=== PATIENT | female | born 2000 | race Caucasian/White ===

== ENCOUNTER 2023-02-07 21:31 | Observation (INO) ==
[2023-02-07 22:15] LABS: INR 1.1 (0.88-1.18)
[2023-02-07 22:17] LABS: ABS Eosinophils 0.1 10^3/ul (0-0.6); ABS Lymphocytes 2.6 10^3/ul (1.0-4.8); ABS Monocytes 1.4 10^3/ul (0-0.8); ABS Neutrophils 10.7 10^3/ul (1.5-7.7); Eosinophil % 0.5 %; Hematocrit 38 % (35-47); Hemoglobin 12.1 g/dL (12.0-16.0); Lymphocyte % 17.4 %; Mean Corpuscular HGB Conc 32 g/dL (31-36); Mean Corpuscular Hemoglobin 30 pg (27-31); Mean Corpuscular Volume 94 fL (80-97); Mean Platelet Volume 8.8 fL (7.4-10.4); Nucleated Red Blood Cells % 0.1; Platelet Count 316 10^3/uL (150-450); Red Blood Count 4.06 10^6 /uL (3.70-4.87); Red Cell Distribution Width 14 % (10-15); White Blood Count 14.7 10^3/uL (3.5-10.8)
[2023-02-07 22:24] LABS: High Sens Troponin Baseline < 3 pg/mL (<15)
[2023-02-07 22:49] LABS: Albumin 3.3 g/dL (3.2-5.2); Anion Gap 13 mmol/L (2-11); CO2 Carbon Dioxide 17 mmol/L (22-32); Calcium 9.3 mg/dL (8.6-10.3); Chloride 103 mmol/L (101-111); Magnesium 1.6 mg/dL (1.9-2.7); Sodium 133 mmol/L (135-145)
[2023-02-07 22:55] LABS: ALT 22 U/L (7-52); AST 19 U/L (13-39); Albumin/Globulin Ratio 0.9 (1-3); Alkaline Phosphatase 94 U/L (35-149); Blood Urea Nitrogen 7 mg/dL (6-24); Globulin 3.6 g/dL (2-4); Glucose 105 mg/dL (70-100); Total Protein 6.9 g/dL (6.4-8.9); eGFR CKD-EPI 134.2 (>60)
[2023-02-07 23:10] LABS: High Sensitivity Troponin 1 Hr 16 pg/mL (<15)
[2023-02-08] MEDS ORDERED: Heparin DRIP 25,000 UNITS BAG 25,000 UNITS/500 ML BAG IV SCH (03:30)
[2023-02-08] MEDS ORDERED: Heparin 5000 UNITS/ML 1 mL VIAL IV SCH (04:00)
[2023-02-08 04:03] LABS: Hematocrit 34 % (35-47); Hemoglobin 11.1 g/dL (12.0-16.0); Mean Corpuscular HGB Conc 33 g/dL (31-36); Mean Corpuscular Hemoglobin 29 pg (27-31); Mean Corpuscular Volume 89 fL (80-97); Mean Platelet Volume 8.6 fL (7.4-10.4); Platelet Count 327 10^3/uL (150-450); Red Blood Count 3.77 10^6 /uL (3.70-4.87); Red Cell Distribution Width 14 % (10-15); White Blood Count 16.8 10^3/uL (3.5-10.8)
[2023-02-08 04:04] LABS: ABS Basophils 0.1 10^3/ul (0-0.2); ABS Eosinophils 0.1 10^3/ul (0-0.6); ABS Lymphocytes 3.5 10^3/ul (1.0-4.8); ABS Monocytes 1.8 10^3/ul (0-0.8); ABS Neutrophils 11.3 10^3/ul (1.5-7.7); Eosinophil % 0.6 %; Lymphocyte % 20.9 %
[2023-02-08 04:26] LABS: High Sensitivity Troponin 3 Hr 9 pg/mL (<15)
[2023-02-08 04:40] LABS: Creatinine, Serum 0.52 mg/dL (0.51-0.95)
[2023-02-08 10:03] LABS: ABS Basophils 0.1 10^3/ul (0-0.2); ABS Eosinophils 0.1 10^3/ul (0-0.6); ABS Lymphocytes 3.2 10^3/ul (1.0-4.8); ABS Monocytes 1.2 10^3/ul (0-0.8); ABS Neutrophils 8.6 10^3/ul (1.5-7.7); Eosinophil % 0.7 %; Hematocrit 33 % (35-47); Lymphocyte % 24.1 %; Mean Corpuscular HGB Conc 34 g/dL (31-36); Mean Corpuscular Hemoglobin 30 pg (27-31); Mean Corpuscular Volume 89 fL (80-97); Mean Platelet Volume 8.4 fL (7.4-10.4); Platelet Count 314 10^3/uL (150-450); Red Blood Count 3.64 10^6 /uL (3.70-4.87); Red Cell Distribution Width 14 % (10-15); White Blood Count 13.2 10^3/uL (3.5-10.8)
[2023-02-08 10:42] LABS: Calcium 8.8 mg/dL (8.6-10.3); Creatinine, Serum 0.43 mg/dL (0.51-0.95); Magnesium 1.7 mg/dL (1.9-2.7); Potassium 3.9 mmol/L (3.5-5.0); eGFR CKD-EPI 139.2 (>60)
[2023-02-08 11:00] VITALS: BP 131/85
[2023-02-08 13:48] LABS: TSH Ultra Thyroid Stim Horm 3.82 mcIU/mL (0.34-5.60)
[2023-02-09 14:02] LABS: DRVVT Screen Ratio 0.87 ratio (<1.20); LAC APTT 30 sec (25 - 37); LAC INR 1.1 (0.9-1.1); Prothrombin Time(LAC) 12.1 sec (9.4 - 12.5)
[2023-02-09 22:19] LABS: Phospholipid Ab IgG < 9.4 GPL; Phospholipid Ab IgM, S < 9.4 MPL
[2023-02-10 13:09] LABS: Beta 2 Glycoprotein IgG <9.4 SGU
== END 2023-02-08 17:53 | disposition home or self-care (01) ==
LOC: ED 21:31 → EDHOLD 21:31 → SUATTDRO 02-08 03:46 → EDHOLD 02-08 08:44 → MEDTELE 02-08 09:31
PROVIDERS: ADMIT Internal Medicine; ATTEND Internal Medicine

== ENCOUNTER 2023-06-09 04:31 | Inpatient (IN) ==
[2023-06-09] MEDS ORDERED: Sodium Citrate/Citric Acid LIQ 15 ML UDC PO ONE (05:33)
[2023-06-09] MEDS ORDERED: Lactated Ringers 1000 ml BAG 1,000 ML IV ONE (05:33)
[2023-06-09] MEDS ORDERED: Nalbuphine 10 MG/ML 1 ML VIAL IV PRN (05:33)
[2023-06-09] MEDS ORDERED: Promethazine INJ(RESTRICTED) 25 MG/ML 1 ml VIAL IV PRN (05:33)
[2023-06-09] MEDS ORDERED: Buffered Lidocaine 1% SYRIN 1 ml INTRADERM ONE (05:33)
[2023-06-09] MEDS ORDERED: ceFOXitin 2 GM IVPREMIX 2 GM/50 ML BAG IVPB ONE (05:33)
[2023-06-09 05:43] LABS: ABS Basophils 0.1 10^3/uL (0.0-0.1); ABS Lymphocytes 1.7 10^3/uL (1.0-4.8); ABS Monocytes 1.2 10^3/uL (0.0-0.9); ABS Neutrophils 6.7 10^3/uL (1.5-7.6); ABS Nucleated RBC 0.01 10^3/ul; Eosinophil % 0.4 %; Hematocrit 34.4 % (35-45); Hemoglobin 11.6 g/dL (11.5-14.3); Lymphocyte % 17.6 %; Mean Corpuscular Hemoglobin 28.8 pg (27-33); Mean Corpuscular Hgb Conc 33.8 g/dL (31-36); Mean Corpuscular Volume 85.1 fL (80-97); Mean Platelet Volume 8.5 fL (7.5-11.2); Nucleated Red Blood Cells % 0.1 /100 WBC (0.0-0.4); Platelet Count 399 10^3/uL (150-450); Red Blood Count 4.05 10^6/uL (3.63-4.92); Red Cell Distribution Width 16.2 % (12-17); White Blood Count 9.9 10^3/uL (3.8-11.8)
[2023-06-09] MEDS ORDERED: Lactated Ringers 1000 ml BAG 1,000 ML IV SCH ×2 (06:00→08:00)
[2023-06-09] MEDS ORDERED: Clindamycin 900 MG/D5W BAG 900 MG/50 ML BAG IVPB SCH (06:00)
[2023-06-09] MEDS ORDERED: Midazolam 2 mg/2 ml VIAL 1 mg/ml 2 ml VIAL (2 mg) ONE (06:11)
[2023-06-09] MEDS ORDERED: Lidocaine 2% PF 5 ML VIAL ONE (06:11)
[2023-06-09] MEDS ORDERED: Propofol 10 MG/ML 20 ML BTL ONE (06:11)
[2023-06-09] MEDS ORDERED: fentaNYL 100 mcg/2 ml 50 MCG/ML VIAL ONE (06:11)
[2023-06-09] MEDS ORDERED: Succinylcholine 200 mg VIAL 20 mg/ml 10 ml VIAL (200 mg) ONE (06:11)
[2023-06-09 06:20] LABS: Urine Benzodiazepine Screen None Detected (None Detect); Urine Cannabinoids Screen None Detected (None Detect); Urine Opiates Screen None Detected (None Detect)
[2023-06-09] MEDS ORDERED: Oxytocin 10 UNITS/ML 1 ML VIAL ONE ×2 (06:22→06:42)
[2023-06-09] MEDS ORDERED: Ondansetron 4 mg VIAL 2 MG/ML 2 ml VIAL ONE ×2 (06:33→06:38)
[2023-06-09] MEDS ORDERED: Dexamethasone IV 4 MG/ML VIAL 1 ml VIAL ONE (06:33)
[2023-06-09] MEDS ORDERED: Acetaminophen IV 1 GM/100ML 1,000 MG/100 ML BAG IV ONE (06:37)
[2023-06-09] MEDS ORDERED: Rocuronium 50 mg VIAL 10 mg/ml 5 ml VIAL (50 mg) ONE (06:46)
[2023-06-09 06:51] LABS: Urine Appearance Clear; Urine Bilirubin Negative (Negative); Urine Blood Negative (Negative); Urine Color Amber; Urine Glucose Negative (Negative); Urine Ketones Negative (Negative); Urine Nitrite Negative (Negative); Urine Protein Negative (Negative); Urine Specific Gravity 1.017 (1.002-1.030); Urine Urobilinogen Positive (Negative)
[2023-06-09] MEDS ORDERED: fentaNYL 250 mcg/5 ml 50 MCG/ML 5 ml VIAL (250 MCG) ONE (06:59)
[2023-06-09] MEDS ORDERED: Ondansetron 4 mg VIAL 2 MG/ML 2 ml VIAL IV PRN (07:03)
[2023-06-09] MEDS ORDERED: Naloxone 0.4 mg VIAL 0.4 mg/ml 1 ml VIAL IV PRN (07:03)
[2023-06-09] MEDS ORDERED: Witch Hazel PAD JAR TOPICAL PRN (07:35)
[2023-06-09] MEDS ORDERED: Glycerin ADULT 2.4 gm SUPP PR PRN (07:35)
[2023-06-09] MEDS ORDERED: Dibucaine 1% OINT 28.35 GM TUBE PR PRN (07:35)
[2023-06-09] MEDS ORDERED: Oxytocin in LR 20,000 MILLI.UNIT/1,000 ML BAG IV SCH (07:35)
[2023-06-09] MEDS ORDERED: Naloxone 0.4 mg VIAL 0.4 mg/ml 1 ml VIAL IV PUSH PRN (07:41)
[2023-06-09] MEDS: fentaNYL 100 mcg/2 ml 50 MCG/ML VIAL IV PRN ×2 (07:55→08:20)
[2023-06-09] MEDS: HYDROmorphone PCA 20 MG/20 ML PCA.SYRING PCA SCH (09:06)
[2023-06-09] MEDS: metroNIDAZOLE IV 500 MG/100ML 500 MG/100 ML BAG IVPB SCH (13:10)
[2023-06-10] MEDS: metroNIDAZOLE IV 500 MG/100ML 500 MG/100 ML BAG IVPB SCH (01:34)
[2023-06-10 06:38] LABS: Hematocrit 25.6 % (35-45); Hemoglobin 8.5 g/dL (11.5-14.3); Mean Corpuscular Hemoglobin 28.7 pg (27-33); Mean Corpuscular Hgb Conc 33.4 g/dL (31-36); Mean Corpuscular Volume 86.1 fL (80-97); Mean Platelet Volume 7.8 fL (7.5-11.2); Platelet Count 276 10^3/uL (150-450); Red Blood Count 2.97 10^6/uL (3.63-4.92); Red Cell Distribution Width 16.3 % (12-17); White Blood Count 11.9 10^3/uL (3.8-11.8)
[2023-06-10 07:05] LABS: ABS Basophils 0.1 10^3/uL (0.0-0.1); ABS Monocytes 1.6 10^3/uL (0.0-0.9); ABS Neutrophils 8.3 10^3/uL (1.5-7.6); Eosinophil % 0.1 %; Lymphocyte % 16.6 %
[2023-06-12 08:24] VITALS: BP 120/68
== END 2023-06-12 14:00 | disposition home or self-care (01) | DRG 540 ==
LOC: MCHOBOUT 04:31 → MCHOB 05:13
PROVIDERS: ADMIT Obstetrics & Gynecology; ATTEND Obstetrics & Gynecology